=== PATIENT | male | born 1985 | race African-American/Black ===

== ENCOUNTER 2024-02-03 20:29 | Emergency (ER) | payer MEDICAID ==
[~2024-02-03] VITALS: Ht 182.9 cm; Wt 136.4 kg
[2024-02-03 20:33] VITALS: BP 138/84; PULSE 75; RESP 16; TEMP 99.1
[2024-02-03 20:57] LABS: COVID AG,FIA SOURCE NASAL SWAB
[2024-02-03 21:17] LABS: SARS-COV2 (COVID) ANTIGEN,FIA Negative (Negative)
[2024-02-03 21:19] LABS: INFLUENZA TYPE A NEGATIVE FOR TYPE A (NEGATIVE); INFLUENZA TYPE B NEGATIVE FOR TYPE B (NEGATIVE)
[2024-02-03] MEDS ORDERED: BENZ-227 PO (21:42)
== END 2024-02-03 21:51 | disposition home or self-care (01) ==
LOC: EMS 20:31
DX: J06.9 Acute upper respiratory infection, unspecified (principal); Z88.0 Allergy status to penicillin; Z88.5 Allergy status to narcotic agent; Z20.822 Contact with and (suspected) exposure to COVID-19
CPT/HCPCS: 87804; 99283

== ENCOUNTER 2024-02-12 20:31 | Emergency (ER) | payer MEDICAID ==
[~2024-02-12] VITALS: Ht 185.4 cm; Wt 136.4 kg
[~2024-02-12 20:31] MED LIST: BENZ-227 PO
[2024-02-12 20:37] VITALS: BP 136/92; PULSE 79; RESP 16; TEMP 97.6
[2024-02-12 20:55] LABS: COVID AG,FIA SOURCE NASAL SWAB
[2024-02-12 21:12] LABS: SARS-COV2 (COVID) ANTIGEN,FIA Negative (Negative)
== END 2024-02-12 21:31 | disposition home or self-care (01) ==
LOC: EMS 20:31
DX: Z20.822 Contact with and (suspected) exposure to COVID-19 (principal); Z53.21 Procedure and treatment not carried out due to patient leaving prior to being seen by health care provider
CPT/HCPCS: 99281; Z7502